=== PATIENT | male | born 1965 | race African-American/Black ===

== ENCOUNTER 2017-09-11 19:26 | Emergency (ER) | payer SELFPAY ==
[2017-09-11] MEDS ORDERED: DIPH,PERTUSS(ACELL),TET VAC/PF 0.5 ML DISP.SYRIN IM ONE (19:33)
[2017-09-11] MEDS ORDERED: SODIUM BICARBONATE 2.4 MEQ VIAL INJ ONE (19:34)
[2017-09-11] MEDS ORDERED: LIDOCAINE 1%/EPINEPHRINE 20ML VIAL IJ ONE (19:34)
[2017-09-11] MEDS ORDERED: 0.9 % SODIUM CHLORIDE 1,000 ML IV ONE (19:40)
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
[2017-09-11 20:36] VITALS: BP 155/77
[2017-09-11 20:52] LABS: BASOPHILS % 0.7 (0.0-1.5); MEAN CORPUSCULAR HEMOGLOBIN 30.7 pg (28.0-34.0); MEAN CORPUSCULAR VOLUME 91.3 fl (80.0-100.0); MONOCYTES % 3.7 % (0.0-11.0); NEUTROPHILS # 3.3 # k/uL (1.4-7.7)
[2017-09-11 21:05] LABS: eGFR (African) > 60; eGFR (Non-African) > 60
[2017-09-11] MEDS ORDERED: MUPIROCIN 2% OINT 22GM TUBE TP ONE (21:31)
[2017-09-11] MEDS ORDERED: ACETAMINOPHEN 500 MG TABLET PO ONE (21:39)
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
== END 2017-09-11 22:05 | disposition home or self-care (01) ==
LOC: ED 19:26
DX: S01.01XA Laceration without foreign body of scalp, initial encounter (principal); V46.1XXA Car passenger injured in collision with other nonmotor vehicle in nontraffic accident, initial encounter; Y93.9 Activity, unspecified; Y92.89 Other specified places as the place of occurrence of the external cause
CPT/HCPCS: 70450; 72125; 80053; 80320; 85025; 90715; J7030; 12001; 90471; 96365; G0480; S1016

== ENCOUNTER 2017-09-24 14:59 | Emergency (ER) | payer SELFPAY ==
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
[2017-09-24 16:04] VITALS: BP 145/90
== END 2017-09-24 16:02 | disposition home or self-care (01) ==
LOC: ED 14:59
DX: Z48.02 Encounter for removal of sutures (principal)
CPT/HCPCS: 99282